=== PATIENT | male | born 1990 | race African-American/Black ===

== ENCOUNTER 2016-12-03 13:39 | Emergency (ER) | payer OTHER ==
--- NOTE | ~2016-12-03 | CR63 ---
[facility] A Service of [facility] RADIOLOGY TEXT RESULTS PATIENT: SAMANTHA SCHULTZ JR LOCATION: [facility] : [birth year] UNIT #: [id number] AGE: [address]: Yi Celeste SEX: M ORDER DR: [id number] [facility]. [place], [place] [address] [id number] E MR#: [id number] Acc #: [id number] NAME: SAMANTHA SCHULTZ JR : 1990 SEX: M STUDY DATE/TIME: UNIT: [facility] ROOM: STUDY DESCRIPTION: CR Chest 2 View Attending Physician: Yi Celeste P.A.-C. Ordering Physician: Yi Celeste P.A.-C. Primary Care Physician: [facility] MEDICAL IMAGING REPORT This report is preliminary unless electronic signature is present EXAM Chest, 2 views. DATE OF EXAM 12/03/2016 at 1324 hours. CLINICAL HISTORY 26-year-old man with [id number]-prkcq day history of shortness of air, cough and congestion. COMPARISON None. FINDINGS Upright PA and lateral views of the chest demonstrate normal cardiac, mediastinal and hilar contours. The lungs are well expanded and clear of acute densities. Benign calcified granulomatous changes are present. There are no effusions. IMPRESSION No acute cardiopulmonary findings. Benign calcified granulomatous changes are present. Dictated by... Dena Santiago M.D. THIS IS AN ELECTRONICALLY VERIFIED REPORT Dena Santiago M.D. at 12/03/2016 6:59 PM JOSEE/radha TD: 12/03/2016 17:45 JOB #: [id number] [facility] A Service of [facility] RADIOLOGY TEXT RESULTS PATIENT: SAMANTHA SCHULTZ JR LOCATION: [facility] : [birth year] UNIT #: [id number] AGE: [address]: Yi Celeste SEX: M ORDER DR: MEDICAL IMAGING REPORT COPY
[~2016-12-03 13:39] MED LIST: AMOXICILLIN500 M1 PO; IBUPROFEN800 MG PO; VICODIN 5/1 TAB 5/50 PO
[2016-12-03 13:43] LABS: INFLUENZA A NEG (NEG); INFLUENZA B POS (NEG)
== END 2016-12-03 14:13 | disposition home or self-care (01) ==
LOC: CFTX 13:39
PROVIDERS: Physician Assistant
DX: J10.1 Influenza due to other identified influenza virus with other respiratory manifestations (principal); F17.210 Nicotine dependence, cigarettes, uncomplicated; Z79.2 Long term (current) use of antibiotics
CPT/HCPCS: 71020; 87651; 87804; 99283